=== PATIENT | female | born 1970 | race Caucasian/White ===

== ENCOUNTER → 2019-12-26 14:16 | Outpatient (CLI) | payer BC, SELFPAY | PROVIDERS: PCP Family Medicine; Visit Provider Family Medicine | DX: Z03.818 Encounter for observation for suspected exposure to other biological agents ruled out (principal) | CPT/HCPCS: U0003 ==

== ENCOUNTER → 2020-08-02 09:35 | Outpatient (CLI) | payer BC, SELFPAY | PROVIDERS: PCP Family Medicine; Visit Provider Nurse Practitioner Family | DX: Z20.822 Contact with and (suspected) exposure to COVID-19 (principal) | CPT/HCPCS: U0003 ==

== ENCOUNTER → 2022-06-05 23:35 | Outpatient (CLI) | payer BC, SELFPAY | PROVIDERS: PCP Student in an Organized Health Care Education/Training Program; Visit Provider Student in an Organized Health Care Education/Training Program | DX: J02.9 Acute pharyngitis, unspecified (principal) | CPT/HCPCS: 87070 ==

== ENCOUNTER 2023-08-06 08:58 | Outpatient (CLI) | payer BC, SELFPAY ==
--- NOTE | 2023-08-06 09:03 | XR_ITS ---
FINAL REPORT CLINICAL HISTORY: cough COMPARISON: None FINDINGS: Two views of the chest were obtained. The heart size and pulmonary vascularity are within normal limits. There are mild left upper lobe and right base opacities, worrisome for pneumonia. The mediastinum is normal. There is no pneumothorax. The bony thorax is intact. IMPRESSION: Mild left upper lobe and right base opacities, worrisome for pneumonia. Reviewed, Interpreted and Dictated by Gonzalo Ferguson III, MD Transcribed by Elaine Lynne Authenticated and . [facility]
== END 2023-08-06 23:59 | disposition home or self-care (01) ==
LOC: RAD 08:59
PROVIDERS: PCP Family Medicine; Visit Provider Student in an Organized Health Care Education/Training Program
DX: R06.02 Shortness of breath (principal); R05.9 Cough, unspecified; R09.89 Other specified symptoms and signs involving the circulatory and respiratory systems
CPT/HCPCS: 71046; 87635

== ENCOUNTER 2023-10-01 09:57 | Emergency (ER) | payer BC, SELFPAY ==
[2023-10-01 10:57] VITALS: BP 157/111; PULSE 73; RESP 16; TEMP 36.5; O2SAT 97; BMI 32.3
--- NOTE | 2023-10-01 11:02 | EXP.UTC ---
Discharge Plan Disposition Patient Disposition: Home, Self-Care Condition: Good Prescriptions Prescriptions: New benzonatate 100 mg capsule 100 mg PO TID PRN (Reason: cough) Qty: 30 0RF guaifenesin [Mucinex] 600 mg tablet extended release 12hr 1,200 mg PO BID PRN (Reason: cough) Qty: 20 0RF No Action azithromycin [Zithromax Z-Ramon] 250 mg tablet See Rx Instructions PO .COMPLEX Qty: 6 0RF Rx Instructions: For 250 mg dose pack: take 500 mg today (day 1), then 250 mg for 4 days (days 2-5) PO dextromethorphan-guaifenesin 30-200 mg/5 mL liquid 5 ml PO Q4-6H PRN (Reason: cough) 7 Days Qty: 200 0RF Rx Instructions: DNExceed 4 doses/24h nifedipine [Procardia XL] 30 mg tablet extended release 24hr 30 mg PO DAILY pantoprazole [Protonix] 40 mg tablet,delayed release (DR/EC) 40 mg PO DAILY Qty: 30 2RF Referrals Follow up/Referrals: Jeffrey Ingram [Primary Care Provider] - See instructions Activity Restrictions/Add. Instructions Additional Instructions/Restrictions: *Monitor Temp, Over the counter Motrin or Tylenol as directed/as needed Tylenol every 4 hours and Motrin every 6 hours (as long as your family doctor has told you that you can take it) for fever or pain. and straight to ER if unable to lower temp less than 101.0 after medication given *Warm salt water gargles may help to soothe the throat *Throat Lozenges? *Warm fluids like tea with honey may help to soothe the throat? *Sleep elevated *Humidifier/Vaporizer Take cough medication as prescribed Follow up IMMEDIATELY for new or worsening symptoms or no Noticeable improvement over the next 48-72 hours. 911 for difficulty breathing or swallowing You were tested for today for COVID19 your test result should be back in the next 24 hours, you may check the [facility] for results of your test Clinical Impressions Clinical Impression: Viral upper respiratory tract infection with cough Instructions Patient Instructions: Cough, DI for Viral Upper Respiratory Infection -- Adult Print Language Print Language: Georgian Discharge ED Provider: Blanca Tao [facility] HPI General Stated complaint: cough, wheezing, Mode of Arrival: Ambulatory Source of Information: Patient Limitations: No Limitations Time Seen by Provider: 10/01/23 11:02 Description of Symptoms (Recalled from Triage Doc. by RN): Patient reports blisters in left shoulder and armpit area. HEENT Symptoms (Recalled from RN notes): No Resp Symptoms (Recalled from RN notes): No Skin Symptoms (Recalled from RN notes): Yes MS Symptoms (Recalled from RN notes): No Functional Status (Recalled from RN notes): wnl History of Present Illness Provider Complaint: Patient states that she has a blister like spot on her left shoulder area, states also she was exposed to COVID last week and did have some fever, nasal congestion and cough wants to get tested for COVID Related Data Home Medications ?Medication ?Instructions ?Recorded ?Confirmed nifedipine 30 mg tablet,extended 30 mg PO DAILY 06/05/22 08/06/23 release 24 hr (Procardia XL) Previous Rx's ?Medication ?Instructions ?Recorded pantoprazole 40 mg tablet,delayed 40 mg PO DAILY #30 tabs 06/05/22 release (Protonix) azithromycin 250 mg tablet See Rx Instructions PO .COMPLEX #6 08/06/23 (Zithromax Z-Ramon) tabs dextromethorphan-guaifenesin 30 5 ml PO Q4-6H PRN cough 7 days 08/06/23 mg-200 mg/5 mL oral liquid #200 mL benzonatate 100 mg capsule 100 mg PO TID PRN cough #30 caps 10/01/23 guaifenesin 600 mg tablet, 1,200 mg (2 x 600 mg) PO BID PRN 10/01/23 extended release 12 hr (Mucinex) cough #20 tabs Allergies Allergy/AdvReac Type Severity Reaction Status Date / Time Sulfa (Sulfonamide Allergy Mild Rash Verified 08/06/23 08:26 Antibiotics) Oral steroids AdvReac Intermediate tachycardia Uncoded 06/05/22 11:38 Worker's Comp Is this a Worker's Comp case?: No
[2023-10-01 11:16] VITALS: BP 157/111; PULSE 73; RESP 16; TEMP 36.5; O2SAT 97
== END 2023-10-01 11:17 | disposition home or self-care (01) ==
PROVIDERS: Emergency Provider Nurse Practitioner; PCP Family Medicine
DX: U07.1 COVID-19 (principal); R05.9 Cough, unspecified; R50.9 Fever, unspecified; R09.81 Nasal congestion
CPT/HCPCS: 87635; 99204; 99212; G0463